=== PATIENT | male | born 1970 | race Caucasian/White ===

== ENCOUNTER 2022-12-30 16:04 | Inpatient (IN) | payer OTHER ==
[2022-12-30 17:02] VITALS: BMI 27.1
[2022-12-30] MEDS ORDERED: chlordiazePOXIDE HCL 25 MG CAPSULE PO ONE (20:29)
[2022-12-30] MEDS ORDERED: BENZONATATE 200 MG CAPSULE PO PRN (21:15)
[2022-12-30] MEDS ORDERED: MAG HYDROX/AL HYDROX/SIMETH 30 ML UNIT-DOSE CUP PO PRN (21:15)
[2022-12-30] MEDS ORDERED: LOPERAMIDE HCL 2 MG CAPSULE PO PRN (21:15)
[2022-12-30] MEDS ORDERED: NALOXONE HCL 0.4 MG/ML VIAL IM PRN (21:15)
[2022-12-30] MEDS ORDERED: NALOXONE HCL (KLOXXADO) 8 MG SPRAY NS PRN (21:15)
[2022-12-30] MEDS ORDERED: guaiFENesin 600 MG TABLET.ER (FP) PO PRN (21:15)
[2022-12-30] MEDS ORDERED: BENZOCAINE/MENTHOL (CHLORASEPTIC ) LOZENGE MM PRN (21:15)
[2022-12-30] MEDS ORDERED: IBUPROFEN 600 MG TABLET (FP) PO PRN (21:15)
[2022-12-30] MEDS ORDERED: MAGNESIUM HYDROX 2400MG/30ML ORAL SUSPENSION 30 ML CUP PO PRN (21:15)
[2022-12-30] MEDS ORDERED: chlordiazePOXIDE HCL 25 MG CAPSULE PO PRN (21:15)
[2022-12-30] MEDS ORDERED: hydrOXYzine PAMOATE 25 MG CAPSULE (FP) PO PRN (21:15)
[2022-12-30] MEDS ORDERED: ACETAMINOPHEN 325 MG TABLET (FP) PO PRN (21:15)
[2022-12-30] MEDS ORDERED: POLYETHYLENE GLYCOL (HEALTHYLAX) 3350 17 GM PACKET PO PRN (21:15)
[2022-12-30] MEDS ORDERED: ONDANSETRON *ODT* 4 MG TABLET SL PRN (21:15)
[2022-12-30] MEDS ORDERED: DICYCLOMINE HCL 10 MG CAPSULE PO PRN (21:15)
[2022-12-30] MEDS ORDERED: BISMUTH SUBSALICYLATE 524 MG/30 ML PO PRN (21:15)
[2022-12-30] MEDS ORDERED: IBUPROFEN 400 MG TABLET (FP) PO PRN (21:15)
[2022-12-30] MEDS ORDERED: chlordiazePOXIDE HCL 25 MG CAPSULE ONE (23:01)
[2022-12-30] MEDS ORDERED: MELATONIN 5 MG TABLETS ONE (23:01)
[2022-12-30] MEDS: MELATONIN 5 MG TABLETS PO SCH (23:03)
[2022-12-30] MEDS: chlordiazePOXIDE HCL 25 MG CAPSULE PO SCH (23:04)
[2022-12-30] MEDS: THIAMINE HCL 100 MG TABLET (FP) PO SCH (23:40)
[2022-12-30] MEDS: NICOTINE POLACRILEX 2 MG GUM BUC PRN (23:55)
[2022-12-31] MEDS: chlordiazePOXIDE HCL 25 MG CAPSULE PO SCH ×4 (05:39→22:27)
[2022-12-31] MEDS: PRENATAL VITAMINS W/ FOLIC ACID TABLET (FP) PO SCH (10:27)
[2022-12-31] MEDS: NICOTINE 21 MG/24 HOURS TOPICAL PATCH TD SCH (10:27)
[2022-12-31 10:47] LABS: HEMATOCRIT 46.7 % (35.4-49); HEMOGLOBIN 15.6 GM/dL (11.7-16.9); MCH 34.5 pg (25.7-33.7); MCHC 33.4 g/dl (32.0-35.9); MEAN PLT VOLUME 8.5 fl (7.5-11.1); PLATELET COUNT 103 10^3/uL (134-434); RBC 4.54 M/mm3 (4.00-5.60); RDW 14.1 % (11.9-15.9)
[2022-12-31 11:55] LABS: POTASSIUM 4.3 mmol/L (3.5-5.1)
[2022-12-31 12:04] LABS: CALCIUM 9.8 mg/dL (8.5-10.1)
[2022-12-31 12:05] LABS: ALBUMIN 3.5 g/dl (3.4-5.0); BLOOD UREA NITROGEN 6.8 mg/dL (7-18)
[2022-12-31 12:08] LABS: CREATININE 0.6 mg/dL (0.55-1.3)
[2022-12-31 12:09] LABS: BILIRUBIN,TOTAL 0.6 mg/dL (0.2-1); TOT PROT 7.3 g/dl (6.4-8.2)
[2022-12-31] MEDS: NICOTINE POLACRILEX 2 MG GUM BUC PRN (15:13)
[2022-12-31] MEDS: MELATONIN 5 MG TABLETS PO SCH (22:27)
[2022-12-31] MEDS: THIAMINE HCL 100 MG TABLET (FP) PO SCH (22:27)
[2023-01-01] MEDS: chlordiazePOXIDE HCL 25 MG CAPSULE PO SCH ×4 (05:48→22:10)
[2023-01-01] MEDS: NICOTINE 21 MG/24 HOURS TOPICAL PATCH TD SCH (10:17)
[2023-01-01] MEDS: PRENATAL VITAMINS W/ FOLIC ACID TABLET (FP) PO SCH (10:17)
[2023-01-01 11:57] LABS: POTASSIUM 4.6 mmol/L (3.5-5.1)
[2023-01-01 12:02] LABS: BLOOD UREA NITROGEN 7.7 mg/dL (7-18); CALCIUM 10.2 mg/dL (8.5-10.1)
[2023-01-01 12:03] LABS: ALBUMIN 3.9 g/dl (3.4-5.0)
[2023-01-01 12:05] LABS: CREATININE 0.7 mg/dL (0.55-1.3)
[2023-01-01 12:07] LABS: TOT PROT 8.2 g/dl (6.4-8.2)
[2023-01-01] MEDS: TETRAHYDROZOLINE HCL EYE DROPS OU PRN ×2 (17:24→22:10)
[2023-01-01] MEDS: MELATONIN 5 MG TABLETS PO SCH (22:10)
[2023-01-01] MEDS: THIAMINE HCL 100 MG TABLET (FP) PO SCH (22:10)
[2023-01-02] MEDS ORDERED: chlordiazePOXIDE HCL 10 MG CAPSULE PO PRN
[2023-01-02] MEDS: chlordiazePOXIDE HCL 10 MG CAPSULE PO SCH ×4 (05:41→22:07)
[2023-01-02] MEDS: TETRAHYDROZOLINE HCL EYE DROPS OU PRN ×2 (05:43→10:32)
[2023-01-02] MEDS: PRENATAL VITAMINS W/ FOLIC ACID TABLET (FP) PO SCH (10:04)
[2023-01-02] MEDS: NICOTINE 21 MG/24 HOURS TOPICAL PATCH TD SCH (10:04)
[2023-01-02] MEDS: amLODIPine BESYLATE 5 MG TABLET (FP) PO SCH (11:27)
[2023-01-02] MEDS: NICOTINE POLACRILEX 2 MG GUM BUC PRN ×2 (14:45→20:02)
[2023-01-02] MEDS: MELATONIN 5 MG TABLETS PO SCH (22:05)
[2023-01-02] MEDS: THIAMINE HCL 100 MG TABLET (FP) PO SCH (22:05)
[2023-01-03] MEDS: chlordiazePOXIDE HCL 10 MG CAPSULE PO SCH ×2 (05:46→17:33)
[2023-01-03] MEDS: TETRAHYDROZOLINE HCL EYE DROPS OU PRN ×2 (05:47→17:33)
[2023-01-03] MEDS: amLODIPine BESYLATE 5 MG TABLET (FP) PO SCH (10:20)
[2023-01-03] MEDS: NICOTINE 21 MG/24 HOURS TOPICAL PATCH TD SCH (10:20)
[2023-01-03] MEDS: PRENATAL VITAMINS W/ FOLIC ACID TABLET (FP) PO SCH (10:20)
[2023-01-03] MEDS: NICOTINE POLACRILEX 2 MG GUM BUC PRN (11:44)
[2023-01-03] MEDS: MELATONIN 5 MG TABLETS PO SCH (22:12)
[2023-01-03] MEDS: THIAMINE HCL 100 MG TABLET (FP) PO SCH (22:13)
[2023-01-04] MEDS ORDERED: chlordiazePOXIDE HCL 10 MG CAPSULE PO ONE (05:00)
[2023-01-04] MEDS: TETRAHYDROZOLINE HCL EYE DROPS OU PRN ×2 (05:37→10:06)
[2023-01-04 06:37] VITALS: RESP 18; TEMP 97.7
[2023-01-04 09:41] VITALS: BP 144/87; PULSE 92
[2023-01-04] MEDS: PRENATAL VITAMINS W/ FOLIC ACID TABLET (FP) PO SCH (10:06)
[2023-01-04] MEDS: amLODIPine BESYLATE 5 MG TABLET (FP) PO SCH (10:06)
[2023-01-04] MEDS: NICOTINE 21 MG/24 HOURS TOPICAL PATCH TD SCH (10:07)
== END 2023-01-04 12:36 | disposition home or self-care (01) | DRG 775 ==
LOC: YASAS 16:04 → Y3N 21:04
PROVIDERS: ADMIT Allergy & Immunology; ATTEND Surgery
PROC: HZ2ZZZZ Detoxification Services for Substance Abuse Treatment (ICD-10-PCS; principal; 2022-12-30)
DX: F10.230 Alcohol dependence with withdrawal, uncomplicated (principal); F17.210 Nicotine dependence, cigarettes, uncomplicated; F19.24 Other psychoactive substance dependence with psychoactive substance-induced mood disorder; E83.51 Hypocalcemia; H91.91 Unspecified hearing loss, right ear; H57.89 Other specified disorders of eye and adnexa; I10 Essential (primary) hypertension; R73.9 Hyperglycemia, unspecified; R74.8 Abnormal levels of other serum enzymes
CPT/HCPCS: 36415; 80053; 83036; 85027; 86780; 87635; 93005; 93010